=== PATIENT | male | born 1935 | race Caucasian/White ===

== ENCOUNTER 2016-08-04 10:50 | Day surgery (SDC) | payer OTHER ==
[~2016-08-04] VITALS: Ht 180.3 cm; Wt 106.0 kg
[~2016-08-04 10:50] MED LIST: ACARBOSE25 MG PO; ADULT LOW DOSE81 M1 PO; ALBUTEROL0.63 MG/3 IH; ALDACTONE25 MG PO; ALLOPURINOL300 MG PO; ALPHAGAN P100 DROP/2 BOTH EYES; ALPHAGAN P100 DROP/5 BOTH EYES; ALPRAZOLAM0.25 M2 PO; ALTACE5 MG PO; AMLODIPINE BESYL5 MG PO; ANALGESIC BALM28 GM TP; ANALPRAM HC 2.5%4 G1 PR; ANALPRAM HC 2.530 GM PR; ANTIFUNGAL15 G1 TP; APRESOLINE25 MG PO; AQUAPHOR OINTM105 GM TP; ARTHRICREME85 GM TP; ASPERCREME 1035.4 GM TP; ASPERCREME L177.4 ML TP; ATARAX10 MG PO; BACTRIM,SEPT1 TABLET PO; BACTROBAN CREAM15 GM TP; BACTROBAN OINTM22 GM TP; BENADRYL ALLERG25 MG PO; BENADRYL25 MG PO; BESIVANCE5 ML RIGHT EYE; BRIMONIDINE TART5 ML BOTH EYES; BUMETANIDE1 M1 PO; BUMETANIDE2 MG PO; BUMEX2 MG PO; BYETTA PEN250 MCG/M1 SC; BYETTA10 MCG/0.0 SQ; CALCITRIOL0.25 MC1; CALCITRIOL0.5 MCG PO; CARAFATE1 GM PO; CATAPRES0.1 MG PO; CENTANY30 GM TP; CHILD ASPIRIN81 M1 PO; CHLORASEPTIC T1 EACH PO; CLINDAMYCIN HC300 MG PO; CLONIDINE HCL0.1 MG PO; COMBIVENT INH14.7 GM IH; COMBIVENT RESPIM4 GM IH; COUMADIN2 MG PO; Chronulac,Cephulac,E PO; Chronulac,Cephulac,Enulose 20 gm/30 ml PO; DESOXIMETASONE15 G1 TP; DULCOLAX10 MG PR; DUONEB 2.5-0.5 M3 ML AEROSOL; DUONEB 2.5-0.5 M3 ML IH; ENDOCET 5-3251 EACH PO; FLEET MINERAL133 ML PR; FLORASTOR250 MG PO; HEPARIN SO1000 UNIT1 INTRA-CATH; HYDRALAZINE HCL25 MG PO; HYDROCODON-ACE1 EAC7 PO; HYDROPHOR OINT454 GM TP; HYDROPHOR228 GM TP; HYDROXYZINE HCL10 MG PO; HYDROXYZINE HCL25 MG PO; INSTA-GLUCOSE G31 GM PO; K-DUR20 MEQ PO; KENALOG,ARISTOC15 G2 TP; KENALOG,ARISTOC80 GM TP; KLOR-CON 1010 ME1 PO; KLOR-CON M2020 MEQ PO; LANTUS 3 M100 UNITS1 SC; LANTUS100 UNIT/1 SQ; LANTUS100 UNIT/2 SQ; LASIX40 MG PO; LASIX80 MG PO; LEVAQUIN500 MG PO; LEVAQUIN750 MG PO; LEVEMIR FL100 UNITS/ SC; LEVEMIR100 UNIT/2 SC; LEVOFLOXACIN750 MG PO; LO-DOSE ASPIRIN81 M1 PO; LO-DOSE ASPIRIN81 M2 PO; LORAZEPAM1 MG PO; LYRICA75 MG PO; MAG-AL PLUS SUS30 ML PO; METOCLOPRAMIDE10 MG PO; METOLAZONE10 MG PO; METOLAZONE5 MG PO; METOPROLOL SUCC50 MG PO; MIRALAX17 GM PO; MIRALAX255 GM PO; NEPHRO-VITE,1 TABLET PO; NEXIUM40 MG PO; NITROSTAT0.4 MG SL; NORVASC5 MG PO; NOVOLOG 10100 UNITS/ SC; NOVOLOG 10100 UNITS/ SQ; NOVOLOG MI100 UNIT/3 SC; NOVOLOG PE100 UNITS/ SC; NOVOLOG100 UNIT/1 SC; NYSTATIN15 GM TP; OMEPRAZOLE40 M1 PO; ONDANSETRON ODT4 MG PO; OXYCODONE HCL5 MG PO; Ocean Nasal 0.65% BOTH NARES; PAIN RELIEF325 M1 PO; PANTOPRAZOLE SO40 MG PO; PHENERGAN-CODE120 ML PO; PHILLIPS'400 MG/5 M PO; POLYETHYLENE GL17 GM PO; PRECOSE25 MG PO; PRED FORTE100 DROP/5 RIGHT EYE; PRILOSEC20 MG PO; PROLENSA1.6 ML BOTH EYES; PROTONIX40 MG PO; RAMIPRIL5 MG PO; RANITIDINE HCL150 M1 PO; REMEDY NUTRASHI59 ML TP; RENAPLEX-D; RENVELA800 MG PO; ROCALTROL0.5 MCG PO; SARNA ANTI-ITC222 ML TP; SENNA S TABLET1 EACH PO; SENNA-TIME S T1 EACH PO; SENOKOT,SENN1 TABLET PO; SERTRALINE HCL100 MG PO; SILVADENE20 GM TP; SIMVASTATIN40 M1 PO; SIMVASTATIN40 MG PO; SPIRONOLACTONE25 MG PO; SSD25GM TP; SUCRALFATE1 GM PO; TOPICORT60 G1 TP; TOPROL XL50 MG PO; TRAMADOL HCL50 MG PO; TYLENOL REGULA325 MG PO; TYLENOL WITH C1 EACH PO; ULORIC40 MG PO; ULTRAM50 MG PO; VENLAFAXINE225 MG PO; VOLTAREN 1% GE100 GM TP; WARFARIN SODIUM PO; WARFARIN SODIUM1 MG PO; WARFARIN SODIUM2 MG PO; WARFARIN SODIUM5 MG PO; XANAX0.25 MG PO; ZOCOR40 MG PO; ZOFRAN4 MG PO; ZOLOFT100 MG PO; ZOVIRAX OINTMEN15 GM TP; Zocor PO
[2016-08-04 11:58] LABS: POINT-OF-CARE METER ID UU14174212
[2016-08-04 12:11] LABS: HEMATOCRIT 43.5 % (38.0-50.0); MCH 27.4 PG (29.0-34.0); MCHC 32.6 G/DL (30.0-36.0); MCV 83.8 FL (86-99); MEAN PLAT.VOLUME 9.5 uM^3 (9.0-12.4); PLATELET COUNT 203 K/uL (156-360); RBC DIS.WIDTH-CV 19.3 % (11.8-14.6); RBC DIS.WIDTH-SD 59.7 % (39-53); RED BLOOD COUNT 5.19 M/uL (4.00-5.50); WHITE BLOOD COUNT 12.1 K/uL (4.1-10.2)
[2016-08-04 12:12] LABS: INTER. NORMALIZED RATIO 1.1
[2016-08-04 12:48] VITALS: BP 150/78
[2016-08-04 12:49] LABS: ANION GAP 15 MEQ/L (2-14); CHLORIDE 94 MEQ/L (99-109); POTASSIUM 4.8 MEQ/L (3.7-5.4); SAMPLE HEMOLYSIS CHECK 0; SAMPLE ICTERIC CHECK 0; SAMPLE LIPEMIA CHECK 0; SODIUM 136 MEQ/L (136-147)
[2016-08-04 12:55] LABS: GFR ESTIMATE (CALCULATED) 36 mL/min/; GLUCOSE 102 mg/dL (70-99); UREA NITROGEN (BUN) 22 mg/dL (9-23)
[2016-08-04 13:06] LABS: METH RESISTANT S AUREUS PCR POSITIVE (NEGATIVE)
[2016-08-04 13:07] LABS: PROBE CHECK PASS
[2016-08-04 16:13] LABS: POINT-OF-CARE USER ID 515036437
[2016-08-04 16:53] VITALS: BP 134/70
[2016-08-04 18:05] VITALS: BP 132/68
== END 2016-08-04 18:10 ==
LOC: SDC 10:50
PROVIDERS: Surgery
PROC: 03180ZD Bypass Left Brachial Artery to Upper Arm Vein, Open Approach (ICD-10-PCS; principal; 2016-08-04)
DX: N18.6 End stage renal disease (principal); Z99.2 Dependence on renal dialysis; E11.22 Type 2 diabetes mellitus with diabetic chronic kidney disease; D63.1 Anemia in chronic kidney disease; K21.9 Gastro-esophageal reflux disease without esophagitis; G47.33 Obstructive sleep apnea (adult) (pediatric); I50.9 Heart failure, unspecified; I48.91 Unspecified atrial fibrillation; I87.2 Venous insufficiency (chronic) (peripheral); M10.9 Gout, unspecified; Z98.890 Other specified postprocedural states; Z91.040 Latex allergy status; Z79.01 Long term (current) use of anticoagulants; Z84.1 Family history of disorders of kidney and ureter; Z83.3 Family history of diabetes mellitus; Z82.3 Family history of stroke
CPT/HCPCS: 80048; 82948; 85027; 85610; 87641; J0690; J1644; J2720; J3010

== ENCOUNTER → 2016-10-25 | Outpatient (CLI) | payer OTHER | END | disposition home or self-care (01) | LOC: AMB 07:45 | PROC: 0JPT0XZ Removal of Tunneled Vascular Access Device from Trunk Subcutaneous Tissue and Fascia, Open Approach (ICD-10-PCS; principal; 2016-10-25) | DX: N18.6 End stage renal disease (principal); Z99.2 Dependence on renal dialysis ==

== ENCOUNTER 2016-12-11 15:37 | Inpatient (IN) | payer OTHER ==
[~2016-12-11] VITALS: Ht 180.3 cm; Wt 109.3 kg
[~2016-12-11 15:37] MED LIST changes: -RENAPLEX-D; +RENAPLEX-D PO
[2016-12-11 16:20] LABS: POINT-OF-CARE METER ID UU14100415
[2016-12-11 16:23] LABS: HEMATOCRIT 31.6 % (38.0-50.0); MCH 30.4 PG (29.0-34.0); MCHC 33.5 G/DL (30.0-36.0); MCV 90.5 FL (86-99); MEAN PLAT.VOLUME 8.4 uM^3 (9.0-12.4); PLATELET COUNT 286 K/uL (156-360); RBC DIS.WIDTH-CV 14.4 % (11.8-14.6); RBC DIS.WIDTH-SD 47.8 % (39-53); RED BLOOD COUNT 3.49 M/uL (4.00-5.50); WHITE BLOOD COUNT 14.6 K/uL (4.1-10.2)
[2016-12-11 16:31] LABS: CHLORIDE 89 mEq/L (99-109); POTASSIUM 3.3 mEq/L (3.7-5.4); SODIUM 134 mEq/L (136-147)
[2016-12-11 16:32] LABS: GLUCOSE 316 mg/dL (70-99)
[2016-12-11 16:34] LABS: ANION GAP 13 MEQ/L (2-14)
[2016-12-11 16:36] LABS: GFR ESTIMATE (CALCULATED) 24 mL/min/
[2016-12-11 16:37] LABS: UREA NITROGEN (BUN) 13 mg/dL (9-23)
[2016-12-11 21:52] VITALS: BP 127/63
[2016-12-11 22:52] LABS: POINT-OF-CARE METER ID UU13113725
[2016-12-12] MEDS ORDERED: CIPRO250 MG PO (01:06)
[2016-12-12] MEDS ORDERED: LIDOCAINE-PRIL1 EACH TP (01:11)
[2016-12-12] MEDS ORDERED: VELTASSA16.8 GM PO (01:15)
[2016-12-12] MEDS ORDERED: CILOSTAZOL50 MG PO (01:17)
[2016-12-12] MEDS ORDERED: NORMAL SALINE FL5 ML TP (01:21)
[2016-12-12] MEDS ORDERED: RENVELA2.4 GM PO (01:24)
[2016-12-12] MEDS ORDERED: CEPACOL SORE T1 EAC9 MM (01:26)
[2016-12-12] MEDS ORDERED: ATARAX,VISTARIL25 MG PO (01:27)
[2016-12-12] MEDS ORDERED: TYLENOL WITH C1 EACH PO (01:29)
[2016-12-12] MEDS ORDERED: ZOFRAN4 MG PO (01:30)
[2016-12-12 05:53] LABS: BASOPHIL COUNT 0.1 K/uL (0-0.1); EOSINOPHIL (%) 2.2 % (0-5); EOSINOPHIL COUNT 0.2 K/uL (0-0.3); HEMATOCRIT 30.5 % (38.0-50.0); IMMATURE GRANULOCYTE (%) 1.3 % (0.0-0.7); IMMATURE GRANULOCYTE COUNT 0.1 K/uL; INSTRUMENT ABS NEUTROPHIL CT 8.5 K/uL; MCH 31.5 PG (29.0-34.0); MCHC 34.4 G/DL (30.0-36.0); MCV 91.6 FL (86-99); MEAN PLAT.VOLUME 8.9 uM^3 (9.0-12.4); MONOCYTE (%) 8.9 % (3-12); NEUTROPHIL (%) 77.9 % (45-76); NEUTROPHIL COUNT 8.5 K/uL (1.8-6.4); PLATELET COUNT 282 K/uL (156-360); RBC DIS.WIDTH-CV 14.6 % (11.8-14.6); RBC DIS.WIDTH-SD 48.8 % (39-53); RED BLOOD COUNT 3.33 M/uL (4.00-5.50); WHITE BLOOD COUNT 10.9 K/uL (4.1-10.2)
[2016-12-12 06:16] LABS: ALKALINE PHOSPHATASE 153 IU/L (3-129); ANION GAP 10 MEQ/L (2-14); CHLORIDE 91 MEQ/L (99-109); GFR ESTIMATE (CALCULATED) 17 mL/min/; GLUCOSE 252 mg/dL (70-99); POTASSIUM 3.6 MEQ/L (3.7-5.4); SAMPLE HEMOLYSIS CHECK 0; SAMPLE ICTERIC CHECK 0; SAMPLE LIPEMIA CHECK 0; SODIUM 135 MEQ/L (136-147); TOTAL BILIRUBIN 0.4 MG/DL (0.0-1.0)
[2016-12-12 06:36] LABS: UREA NITROGEN (BUN) 21 mg/dL (9-23)
[2016-12-12 07:46] VITALS: BP 126/58
[2016-12-12 19:21] VITALS: BP 117/71
[2016-12-12 21:32] LABS: POINT-OF-CARE USER ID 608261316
[2016-12-12 22:58] VITALS: BP 112/54
[2016-12-13 05:56] LABS: POINT-OF-CARE USER ID 608261316
[2016-12-13 08:11] LABS: BASOPHIL COUNT 0.1 K/uL (0-0.1); EOSINOPHIL (%) 3.3 % (0-5); EOSINOPHIL COUNT 0.5 K/uL (0-0.3); HEMATOCRIT 28.8 % (38.0-50.0); IMMATURE GRANULOCYTE (%) 1.5 % (0.0-0.7); IMMATURE GRANULOCYTE COUNT 0.2 K/uL; INSTRUMENT ABS NEUTROPHIL CT 11.5 K/uL; MCH 31.6 PG (29.0-34.0); MCHC 34.4 G/DL (30.0-36.0); MEAN PLAT.VOLUME 8.8 uM^3 (9.0-12.4); MONOCYTE (%) 8.2 % (3-12); MONOCYTE COUNT 1.2 K/uL (0-0.8); NEUTROPHIL (%) 79.5 % (45-76); NEUTROPHIL COUNT 11.5 K/uL (1.8-6.4); NRBC (%) 0.1 /100 WBC (0-0); PLATELET COUNT 294 K/uL (156-360); RBC DIS.WIDTH-CV 14.7 % (11.8-14.6); RBC DIS.WIDTH-SD 49.6 % (39-53); RED BLOOD COUNT 3.13 M/uL (4.00-5.50); WHITE BLOOD COUNT 14.5 K/uL (4.1-10.2)
[2016-12-13 08:17] VITALS: BP 139/74
[2016-12-13 08:35] LABS: ANION GAP 13 MEQ/L (2-14); CHLORIDE 93 MEQ/L (99-109); GFR ESTIMATE (CALCULATED) 11 mL/min/; GLUCOSE 274 mg/dL (70-99); POTASSIUM 3.6 MEQ/L (3.7-5.4); SAMPLE HEMOLYSIS CHECK 0; SAMPLE ICTERIC CHECK 0; SAMPLE LIPEMIA CHECK 0; SODIUM 135 MEQ/L (136-147)
[2016-12-13 08:43] LABS: UREA NITROGEN (BUN) 38 mg/dL (9-23)
[2016-12-13 12:38] LABS: HBSG INDEX 0.17; HEPATITIS B SURFACE ANTIBODY Nonreactive
[2016-12-13 16:10] VITALS: BP 121/53
[2016-12-13 23:10] VITALS: BP 118/70
[2016-12-14 07:25] VITALS: BP 111/56
[2016-12-14 15:50] VITALS: BP 115/55
[2016-12-14 22:54] VITALS: BP 118/72
[2016-12-15] VITALS: BP 110/60
[2016-12-15 08:19] LABS: BASOPHIL COUNT 0.1 K/uL (0-0.1); EOSINOPHIL (%) 2.8 % (0-5); EOSINOPHIL COUNT 0.4 K/uL (0-0.3); HEMATOCRIT 29.1 % (38.0-50.0); IMMATURE GRANULOCYTE (%) 2.2 % (0.0-0.7); IMMATURE GRANULOCYTE COUNT 0.3 K/uL; INSTRUMENT ABS NEUTROPHIL CT 10.5 K/uL; LYMPHOCYTE COUNT 1.3 K/uL (1.0-2.8); MCH 30.2 PG (29.0-34.0); MCV 91.5 FL (86-99); MEAN PLAT.VOLUME 8.8 uM^3 (9.0-12.4); MONOCYTE (%) 8.4 % (3-12); MONOCYTE COUNT 1.2 K/uL (0-0.8); NEUTROPHIL (%) 76.6 % (45-76); NEUTROPHIL COUNT 10.5 K/uL (1.8-6.4); NRBC (%) 0.1 /100 WBC (0-0); PLATELET COUNT 314 K/uL (156-360); RBC DIS.WIDTH-CV 14.8 % (11.8-14.6); RBC DIS.WIDTH-SD 49.1 % (39-53); RED BLOOD COUNT 3.18 M/uL (4.00-5.50); WHITE BLOOD COUNT 13.7 K/uL (4.1-10.2)
[2016-12-15 08:46] LABS: ANION GAP 12 MEQ/L (2-14); CHLORIDE 92 MEQ/L (99-109); GFR ESTIMATE (CALCULATED) 9 mL/min/; GLUCOSE 313 mg/dL (70-99); SAMPLE HEMOLYSIS CHECK 0; SAMPLE ICTERIC CHECK 0; SAMPLE LIPEMIA CHECK 0; SODIUM 130 MEQ/L (136-147); UREA NITROGEN (BUN) 51 mg/dL (9-23)
[2016-12-15 08:49] LABS: POTASSIUM 4.5 MEQ/L (3.7-5.4)
[2016-12-15 17:58] VITALS: BP 121/58
[2016-12-15 23:35] VITALS: BP 114/58
[2016-12-16 07:17] VITALS: BP 107/52
[2016-12-16 22:55] VITALS: BP 124/57
[2016-12-17 06:10] LABS: POINT-OF-CARE METER ID UU13113725
[2016-12-17 06:33] LABS: HEMATOCRIT 31.6 % (38.0-50.0); MCHC 32.9 G/DL (30.0-36.0); MEAN PLAT.VOLUME 8.6 uM^3 (9.0-12.4); PLATELET COUNT 339 K/uL (156-360); RBC DIS.WIDTH-CV 15.5 % (11.8-14.6); RBC DIS.WIDTH-SD 51.8 % (39-53); RED BLOOD COUNT 3.36 M/uL (4.00-5.50); WHITE BLOOD COUNT 12.9 K/uL (4.1-10.2)
[2016-12-17 07:24] VITALS: BP 122/58
[2016-12-17 16:08] VITALS: BP 109/52
[2016-12-17 23:00] VITALS: BP 123/57
[2016-12-18 07:32] VITALS: BP 107/59
[2016-12-18 08:29] LABS: BASOPHIL COUNT 0.1 K/uL (0-0.1); EOSINOPHIL (%) 2.6 % (0-5); EOSINOPHIL COUNT 0.4 K/uL (0-0.3); HEMATOCRIT 28.8 % (38.0-50.0); IMMATURE GRANULOCYTE COUNT 0.1 K/uL; INSTRUMENT ABS NEUTROPHIL CT 11.5 K/uL; LYMPHOCYTE COUNT 1.2 K/uL (1.0-2.8); MCH 31.2 PG (29.0-34.0); MCHC 33.3 G/DL (30.0-36.0); MCV 93.5 FL (86-99); MEAN PLAT.VOLUME 8.7 uM^3 (9.0-12.4); MONOCYTE (%) 8.1 % (3-12); MONOCYTE COUNT 1.2 K/uL (0-0.8); NEUTROPHIL (%) 79.2 % (45-76); NEUTROPHIL COUNT 11.5 K/uL (1.8-6.4); PLATELET COUNT 303 K/uL (156-360); RBC DIS.WIDTH-CV 15.8 % (11.8-14.6); RBC DIS.WIDTH-SD 50.7 % (39-53); RED BLOOD COUNT 3.08 M/uL (4.00-5.50); WHITE BLOOD COUNT 14.5 K/uL (4.1-10.2)
[2016-12-18 08:50] LABS: ANION GAP 13 MEQ/L (2-14); CHLORIDE 96 MEQ/L (99-109); GFR ESTIMATE (CALCULATED) 8 mL/min/; GLUCOSE 266 mg/dL (70-99); SAMPLE HEMOLYSIS CHECK 0; SAMPLE ICTERIC CHECK 0; SAMPLE LIPEMIA CHECK 0; SODIUM 133 MEQ/L (136-147); UREA NITROGEN (BUN) 58 mg/dL (9-23)
[2016-12-18 08:51] LABS: POTASSIUM 5.6 MEQ/L (3.7-5.4)
[2016-12-18 13:12] VITALS: BP 125/62
[2016-12-18 15:57] VITALS: BP 100/66
[2016-12-18 23:16] VITALS: BP 108/51
[2016-12-19 06:53] VITALS: BP 119/58
[2016-12-19 15:15] VITALS: BP 98/52
[2016-12-19 21:19] LABS: POINT-OF-CARE METER ID UU13113725
[2016-12-19 23:18] VITALS: BP 107/58
[2016-12-20 05:27] LABS: POINT-OF-CARE METER ID UU13113725
[2016-12-20 08:06] LABS: BASOPHIL COUNT 0.1 K/uL (0-0.1); EOSINOPHIL (%) 2.9 % (0-5); EOSINOPHIL COUNT 0.4 K/uL (0-0.3); HEMATOCRIT 30.9 % (38.0-50.0); IMMATURE GRANULOCYTE (%) 1.1 % (0.0-0.7); IMMATURE GRANULOCYTE COUNT 0.2 K/uL; INSTRUMENT ABS NEUTROPHIL CT 9.9 K/uL; LYMPHOCYTE COUNT 1.6 K/uL (1.0-2.8); MCH 30.2 PG (29.0-34.0); MCHC 32.7 G/DL (30.0-36.0); MCV 92.5 FL (86-99); MEAN PLAT.VOLUME 8.6 uM^3 (9.0-12.4); MONOCYTE (%) 9.1 % (3-12); MONOCYTE COUNT 1.2 K/uL (0-0.8); NEUTROPHIL (%) 74.1 % (45-76); NEUTROPHIL COUNT 9.9 K/uL (1.8-6.4); PLATELET COUNT 316 K/uL (156-360); RBC DIS.WIDTH-CV 15.8 % (11.8-14.6); RBC DIS.WIDTH-SD 52.8 % (39-53); RED BLOOD COUNT 3.34 M/uL (4.00-5.50); WHITE BLOOD COUNT 13.3 K/uL (4.1-10.2)
[2016-12-20 08:24] LABS: ANION GAP 13 MEQ/L (2-14); CHLORIDE 95 MEQ/L (99-109); SAMPLE HEMOLYSIS CHECK 0; SAMPLE ICTERIC CHECK 0; SAMPLE LIPEMIA CHECK 0; SODIUM 134 MEQ/L (136-147)
[2016-12-20 08:29] LABS: GFR ESTIMATE (CALCULATED) 8 mL/min/; GLUCOSE 180 mg/dL (70-99); UREA NITROGEN (BUN) 49 mg/dL (9-23)
[2016-12-20] MEDS ORDERED: CIPRO250 MG PO (14:36)
[2016-12-20] MEDS ORDERED: VANCOMYCIN HCL1 GM IV (14:36)
== END 2016-12-20 16:57 | disposition home or self-care (01) | DRG 617 ==
LOC: EME 15:37 → EDOF 20:30 → 5EAST 20:30 → ENRESERV 20:31 → 5EAST 21:35
PROVIDERS: Internal Medicine; Internal Medicine Nephrology; Physician Assistant Medical; Surgery
DX: E11.69 Type 2 diabetes mellitus with other specified complication (principal); M86.171 Other acute osteomyelitis, right ankle and foot; E11.52 Type 2 diabetes mellitus with diabetic peripheral angiopathy with gangrene; I70.261 Atherosclerosis of native arteries of extremities with gangrene, right leg; E11.621 Type 2 diabetes mellitus with foot ulcer; L97.514 Non-pressure chronic ulcer of other part of right foot with necrosis of bone; B95.62 Methicillin resistant Staphylococcus aureus infection as the cause of diseases classified elsewhere; B96.5 Pseudomonas (aeruginosa) (mallei) (pseudomallei) as the cause of diseases classified elsewhere; E11.22 Type 2 diabetes mellitus with diabetic chronic kidney disease; I13.2 Hypertensive heart and chronic kidney disease with heart failure and with stage 5 chronic kidney disease, or end stage renal disease; N18.6 End stage renal disease; Z99.2 Dependence on renal dialysis; E87.1 Hypo-osmolality and hyponatremia; I50.9 Heart failure, unspecified; D63.1 Anemia in chronic kidney disease; I87.2 Venous insufficiency (chronic) (peripheral); H53.8 Other visual disturbances; H57.8 Other specified disorders of eye and adnexa; Z98.890 Other specified postprocedural states; E78.5 Hyperlipidemia, unspecified; J44.9 Chronic obstructive pulmonary disease, unspecified; I48.0 Paroxysmal atrial fibrillation; I48.2 Chronic atrial fibrillation; I25.10 Atherosclerotic heart disease of native coronary artery without angina pectoris; I25.2 Old myocardial infarction; E11.42 Type 2 diabetes mellitus with diabetic polyneuropathy; N40.0 Benign prostatic hyperplasia without lower urinary tract symptoms; N30.20 Other chronic cystitis without hematuria; M10.9 Gout, unspecified; F32.9 Major depressive disorder, single episode, unspecified; G47.33 Obstructive sleep apnea (adult) (pediatric); K21.9 Gastro-esophageal reflux disease without esophagitis; E66.9 Obesity, unspecified; Z68.33 Body mass index [BMI] 33.0-33.9, adult; F41.9 Anxiety disorder, unspecified; G89.29 Other chronic pain; M51.9 Unspecified thoracic, thoracolumbar and lumbosacral intervertebral disc disorder; F10.10 Alcohol abuse, uncomplicated; Z95.5 Presence of coronary angioplasty implant and graft; Z98.1 Arthrodesis status; Z79.4 Long term (current) use of insulin; Z87.01 Personal history of pneumonia (recurrent); Z87.891 Personal history of nicotine dependence; Z82.49 Family history of ischemic heart disease and other diseases of the circulatory system; Z83.3 Family history of diabetes mellitus
CPT/HCPCS: 73630; 73718; 80048; 80053; 80069; 80202; 82948; 83605; 85025; 85027; 86706; 87040; 87340; 88305; 88311; 93926; 94640; 94640 76; 94760; 99202; 99281; 99284; J0690; J0692; J0696; J0881; J1644; J1815; J3010; J3370; J7040; J7050; Q0177; S0020

== ENCOUNTER 2017-02-08 20:25 | Inpatient (IN) | payer OTHER ==
[~2017-02-08] VITALS: Ht 180.3 cm; Wt 116.5 kg
[~2017-02-08 20:25] MED LIST changes: -ALBUTEROL0.63 MG/3 IH; +ALBUTEROL2.5 MG/3 M IH; +ATARAX,VISTARIL25 MG PO; +CEPACOL SORE T1 EAC9 MM; +CILOSTAZOL50 MG PO; +CIPRO250 MG PO; +LIDOCAINE-PRIL1 EACH TP; +NORMAL SALINE FL5 ML TP; +RENVELA2.4 GM PO; +VANCOMYCIN HCL1 GM IV; +VELTASSA16.8 GM PO
[2017-02-08 21:25] LABS: BASOPHIL COUNT 0.1 K/uL (0-0.1); EOSINOPHIL (%) 0.1 % (0-5); HEMATOCRIT 29.4 % (38.0-50.0); IMMATURE GRANULOCYTE (%) 0.7 % (0.0-0.7); IMMATURE GRANULOCYTE COUNT 0.1 K/uL; INSTRUMENT ABS NEUTROPHIL CT 16.9 K/uL; LYMPHOCYTE COUNT 0.6 K/uL (1.0-2.8); MCH 29.9 PG (29.0-34.0); MCV 93.6 FL (86-99); MONOCYTE (%) 8.6 % (3-12); MONOCYTE COUNT 1.7 K/uL (0-0.8); NEUTROPHIL (%) 87.4 % (45-76); NEUTROPHIL COUNT 16.9 K/uL (1.8-6.4); PLATELET COUNT 272 K/uL (156-360); RBC DIS.WIDTH-CV 16.3 % (11.8-14.6); RBC DIS.WIDTH-SD 54.9 % (39-53); RED BLOOD COUNT 3.14 M/uL (4.00-5.50); WHITE BLOOD COUNT 19.3 K/uL (4.1-10.2)
[2017-02-08 21:45] LABS: TROP-I INTERPRETATION NEGATIVE; TROPONIN-I 0.02 ng/mL (0.0-0.30)
[2017-02-08 21:57] LABS: INTER. NORMALIZED RATIO 1.3
[2017-02-08 21:59] LABS: CHLORIDE 90 mEq/L (99-109); POTASSIUM 4.7 mEq/L (3.7-5.4); PTT 31.4 SEC (25-37); SODIUM 136 mEq/L (136-147)
[2017-02-08 22:01] LABS: GLUCOSE 156 mg/dL (70-99)
[2017-02-08 22:02] LABS: ANION GAP 19 MEQ/L (2-14)
[2017-02-08 22:04] LABS: ALKALINE PHOSPHATASE 439 IU/L (3-129)
[2017-02-08 22:05] LABS: GFR ESTIMATE (CALCULATED) 15 mL/min/
[2017-02-08 22:06] LABS: UREA NITROGEN (BUN) 47 mg/dL (9-23)
[2017-02-08 22:08] LABS: LIPASE 7 U/L (1.0-51.0)
[2017-02-09 02:15] VITALS: BP 110/57
[2017-02-09 02:52] VITALS: BP 110/57
[2017-02-09 04:25] LABS: POINT-OF-CARE METER ID UU14117124
[2017-02-09 04:29] VITALS: BP 119/54
[2017-02-09 06:41] LABS: POINT-OF-CARE METER ID UU14117124
[2017-02-09 06:43] LABS: HEMATOCRIT 29.6 % (38.0-50.0); MCHC 30.4 G/DL (30.0-36.0); MCV 95.5 FL (86-99); PLATELET COUNT 252 K/uL (156-360); RBC DIS.WIDTH-CV 16.3 % (11.8-14.6); RBC DIS.WIDTH-SD 56.1 % (39-53); WHITE BLOOD COUNT 24.1 K/uL (4.1-10.2)
[2017-02-09 07:05] LABS: ALKALINE PHOSPHATASE 399 IU/L (3-129); ANION GAP 18 MEQ/L (2-14); CHLORIDE 91 MEQ/L (99-109); GFR ESTIMATE (CALCULATED) 13 mL/min/; GLUCOSE 128 mg/dL (70-99); POTASSIUM 5.4 MEQ/L (3.7-5.4); SAMPLE HEMOLYSIS CHECK 0; SAMPLE ICTERIC CHECK 0; SAMPLE LIPEMIA CHECK 0; SODIUM 136 MEQ/L (136-147); UREA NITROGEN (BUN) 54 mg/dL (9-23)
[2017-02-09] MEDS ORDERED: LINZESS72 MCG PO (09:00)
[2017-02-09] MEDS ORDERED: CLONIDINE HCL0.1 MG PO (09:13)
[2017-02-09] MEDS ORDERED: OXYCODONE HCL5 M1 PO (09:15)
[2017-02-09] MEDS ORDERED: PHENERGAN-CODE120 ML PO (09:16)
[2017-02-09 11:52] LABS: AHBS INDEX 0.35; HBSG INDEX 0.16; HEPATITIS B SURFACE ANTIBODY Nonreactive
[2017-02-09 15:30] VITALS: BP 93/50
[2017-02-09 19:12] VITALS: BP 104/59
[2017-02-09 21:52] LABS: POINT-OF-CARE METER ID UU14188577
[2017-02-09 23:26] VITALS: BP 100/50
[2017-02-10] VITALS (7 sets, daily range): BP systolic 100–138; BP diastolic 53–62
[2017-02-10 06:17] LABS: POINT-OF-CARE METER ID UU14208753
[2017-02-10 06:56] LABS: EOSINOPHIL (%) 0.4 % (0-5); EOSINOPHIL COUNT 0.1 K/uL (0-0.3); HEMATOCRIT 28.6 % (38.0-50.0); IMMATURE GRANULOCYTE (%) 0.6 % (0.0-0.7); IMMATURE GRANULOCYTE COUNT 0.1 K/uL; INSTRUMENT ABS NEUTROPHIL CT 13.4 K/uL; LYMPHOCYTE COUNT 0.9 K/uL (1.0-2.8); MCH 29.3 PG (29.0-34.0); MCHC 30.8 G/DL (30.0-36.0); MCV 95.3 FL (86-99); MEAN PLAT.VOLUME 9.1 uM^3 (9.0-12.4); MONOCYTE COUNT 1.3 K/uL (0-0.8); NEUTROPHIL (%) 85.3 % (45-76); NEUTROPHIL COUNT 13.4 K/uL (1.8-6.4); NRBC (%) 0.1 /100 WBC (0-0); PLATELET COUNT 266 K/uL (156-360); RBC DIS.WIDTH-CV 15.9 % (11.8-14.6); RBC DIS.WIDTH-SD 54.4 % (39-53); WHITE BLOOD COUNT 15.7 K/uL (4.1-10.2)
[2017-02-10 07:02] LABS: ALKALINE PHOSPHATASE 322 IU/L (3-129); ANION GAP 14 MEQ/L (2-14); CHLORIDE 93 MEQ/L (99-109); SAMPLE HEMOLYSIS CHECK 0; SAMPLE ICTERIC CHECK 0; SAMPLE LIPEMIA CHECK 0; SODIUM 139 MEQ/L (136-147); UREA NITROGEN (BUN) 47 mg/dL (9-23)
[2017-02-10 07:05] LABS: GFR ESTIMATE (CALCULATED) 16 mL/min/; GLUCOSE 81 mg/dL (70-99); TOTAL BILIRUBIN 0.6 MG/DL (0.0-1.0)
[2017-02-10 07:19] LABS: BASOPHIL COUNT 0.1 K/uL (0-0.1); EOSINOPHIL (%) 0.4 % (0-5); EOSINOPHIL COUNT 0.1 K/uL (0-0.3); HEMATOCRIT 28.1 % (38.0-50.0); IMMATURE GRANULOCYTE (%) 0.5 % (0.0-0.7); IMMATURE GRANULOCYTE COUNT 0.1 K/uL; INSTRUMENT ABS NEUTROPHIL CT 13.6 K/uL; LYMPHOCYTE COUNT 0.9 K/uL (1.0-2.8); MCH 29.8 PG (29.0-34.0); MCHC 31.3 G/DL (30.0-36.0); MCV 95.3 FL (86-99); MEAN PLAT.VOLUME 8.8 uM^3 (9.0-12.4); MONOCYTE COUNT 1.3 K/uL (0-0.8); NEUTROPHIL (%) 85.4 % (45-76); NEUTROPHIL COUNT 13.6 K/uL (1.8-6.4); PLATELET COUNT 265 K/uL (156-360); RBC DIS.WIDTH-CV 15.9 % (11.8-14.6); RBC DIS.WIDTH-SD 54.6 % (39-53); RED BLOOD COUNT 2.95 M/uL (4.00-5.50); WHITE BLOOD COUNT 15.9 K/uL (4.1-10.2)
[2017-02-10 11:25] LABS: POINT-OF-CARE METER ID UU14117124
[2017-02-10 16:05] LABS: POINT-OF-CARE METER ID UU14117124
[2017-02-11 04:44] VITALS: BP 100/53
[2017-02-11 06:57] LABS: HEMATOCRIT 26.8 % (38.0-50.0); MCH 30.4 PG (29.0-34.0); MCHC 32.5 G/DL (30.0-36.0); MCV 93.7 FL (86-99); PLATELET COUNT 247 K/uL (156-360); RBC DIS.WIDTH-CV 15.7 % (11.8-14.6); RBC DIS.WIDTH-SD 53.1 % (39-53); RED BLOOD COUNT 2.86 M/uL (4.00-5.50); WHITE BLOOD COUNT 12.7 K/uL (4.1-10.2)
[2017-02-11 07:30] LABS: ANION GAP 18 MEQ/L (2-14); CHLORIDE 90 MEQ/L (99-109); GFR ESTIMATE (CALCULATED) 12 mL/min/; POTASSIUM 4.8 MEQ/L (3.7-5.4); SAMPLE HEMOLYSIS CHECK 0; SAMPLE ICTERIC CHECK 0; SAMPLE LIPEMIA CHECK 0; SODIUM 135 MEQ/L (136-147)
[2017-02-11 07:31] LABS: GLUCOSE 136 mg/dL (70-99); UREA NITROGEN (BUN) 71 mg/dL (9-23)
[2017-02-11 07:52] LABS: EOSINOPHIL (%) 0 % (0-5); HEMATOLOGY COMMENT 1 SMEAR COMPATIBLE; IMMATURE GRANULOCYTE (%) 0.5 % (0.0-0.7); IMMATURE GRANULOCYTE COUNT 0.1 K/uL; INSTRUMENT ABS NEUTROPHIL CT 12.4 K/uL; LYMPHOCYTE COUNT 0.1 K/uL (1.0-2.8); MONOCYTE (%) 1.3 % (3-12); MONOCYTE COUNT 0.2 K/uL (0-0.8); NEUTROPHIL (%) 97.1 % (45-76); NEUTROPHIL COUNT 12.4 K/uL (1.8-6.4)
[2017-02-11 07:55] VITALS: BP 114/54
[2017-02-11 11:08] LABS: POINT-OF-CARE METER ID UU14188577
[2017-02-11 11:24] VITALS: BP 108/54
[2017-02-11 15:27] VITALS: BP 105/57
[2017-02-11 16:27] LABS: POINT-OF-CARE METER ID UU14188577
[2017-02-11 19:15] VITALS: BP 90/53
[2017-02-11 21:35] LABS: POINT-OF-CARE METER ID UU14208753
[2017-02-11 21:51] LABS: METH RESISTANT S AUREUS PCR POSITIVE (NEGATIVE)
[2017-02-11 22:28] LABS: PROBE CHECK PASS
[2017-02-11 23:33] VITALS: BP 111/57
[2017-02-12 02:01] LABS: POINT-OF-CARE METER ID UU14208753
[2017-02-12 03:53] VITALS: BP 110/62
[2017-02-12 06:21] LABS: POINT-OF-CARE METER ID UU14208753
[2017-02-12 06:56] LABS: EOSINOPHIL (%) 0 % (0-5); HEMATOCRIT 27.1 % (38.0-50.0); IMMATURE GRANULOCYTE (%) 0.6 % (0.0-0.7); IMMATURE GRANULOCYTE COUNT 0.1 K/uL; INSTRUMENT ABS NEUTROPHIL CT 10.6 K/uL; LYMPHOCYTE COUNT 0.1 K/uL (1.0-2.8); MCH 29.5 PG (29.0-34.0); MCHC 32.1 G/DL (30.0-36.0); MCV 91.9 FL (86-99); MEAN PLAT.VOLUME 9.1 uM^3 (9.0-12.4); MONOCYTE (%) 3.2 % (3-12); MONOCYTE COUNT 0.4 K/uL (0-0.8); NEUTROPHIL (%) 94.9 % (45-76); NEUTROPHIL COUNT 10.6 K/uL (1.8-6.4); NRBC (%) 0.5 /100 WBC (0-0); PLATELET COUNT 241 K/uL (156-360); RBC DIS.WIDTH-CV 15.4 % (11.8-14.6); RED BLOOD COUNT 2.95 M/uL (4.00-5.50); WHITE BLOOD COUNT 11.2 K/uL (4.1-10.2)
[2017-02-12 07:37] LABS: ANION GAP 19 MEQ/L (2-14); CHLORIDE 88 MEQ/L (99-109); GFR ESTIMATE (CALCULATED) 10 mL/min/; GLUCOSE 256 mg/dL (70-99); POTASSIUM 5.2 MEQ/L (3.7-5.4); SAMPLE HEMOLYSIS CHECK 0; SAMPLE ICTERIC CHECK 0; SAMPLE LIPEMIA CHECK 0; SODIUM 133 MEQ/L (136-147); UREA NITROGEN (BUN) 101 mg/dL (9-23)
[2017-02-12 15:53] VITALS: BP 96/48
[2017-02-12 16:20] LABS: POINT-OF-CARE METER ID UU14208753
[2017-02-12 18:35] LABS: INTERNAL CONTROL VALID? YES
[2017-02-12 21:42] LABS: POINT-OF-CARE METER ID UU14208753
[2017-02-12 23:57] VITALS: BP 106/53
[2017-02-13 04:31] VITALS: BP 118/70
[2017-02-13 05:54] LABS: POINT-OF-CARE METER ID UU14117124
[2017-02-13 08:41] LABS: EOSINOPHIL (%) 0 % (0-5); HEMATOCRIT 24.8 % (38.0-50.0); IMMATURE GRANULOCYTE (%) 1.3 % (0.0-0.7); IMMATURE GRANULOCYTE COUNT 0.1 K/uL; INSTRUMENT ABS NEUTROPHIL CT 8.8 K/uL; LYMPHOCYTE COUNT 0.2 K/uL (1.0-2.8); MCH 30.3 PG (29.0-34.0); MCHC 32.7 G/DL (30.0-36.0); MCV 92.9 FL (86-99); MEAN PLAT.VOLUME 8.9 uM^3 (9.0-12.4); MONOCYTE (%) 3.7 % (3-12); MONOCYTE COUNT 0.4 K/uL (0-0.8); NEUTROPHIL (%) 93.4 % (45-76); NEUTROPHIL COUNT 8.8 K/uL (1.8-6.4); NRBC (%) 0.7 /100 WBC (0-0); PLATELET COUNT 240 K/uL (156-360); RBC DIS.WIDTH-CV 15.4 % (11.8-14.6); RED BLOOD COUNT 2.67 M/uL (4.00-5.50); WHITE BLOOD COUNT 9.4 K/uL (4.1-10.2)
[2017-02-13 08:58] LABS: ANION GAP 13 MEQ/L (2-14); CHLORIDE 88 MEQ/L (99-109); POTASSIUM 4.4 MEQ/L (3.7-5.4); SAMPLE HEMOLYSIS CHECK 0; SAMPLE ICTERIC CHECK 0; SAMPLE LIPEMIA CHECK 0; SODIUM 132 MEQ/L (136-147)
[2017-02-13 09:07] LABS: GFR ESTIMATE (CALCULATED) 15 mL/min/; UREA NITROGEN (BUN) 59 mg/dL (9-23)
[2017-02-13 09:15] LABS: GLUCOSE 415 mg/dL (70-99)
[2017-02-13 11:42] VITALS: BP 98/54
[2017-02-13 16:00] VITALS: BP 117/58
[2017-02-13 16:35] LABS: POINT-OF-CARE METER ID UU14117124
[2017-02-13 19:19] VITALS: BP 109/53
[2017-02-13 21:49] LABS: POINT-OF-CARE METER ID UU14208753
[2017-02-13 23:44] VITALS: BP 121/58
[2017-02-14 03:49] VITALS: BP 118/55
[2017-02-14 06:15] LABS: POINT-OF-CARE METER ID UU14117124
[2017-02-14 08:52] LABS: EOSINOPHIL (%) 0 % (0-5); HEMATOCRIT 28.1 % (38.0-50.0); IMMATURE GRANULOCYTE (%) 0.9 % (0.0-0.7); IMMATURE GRANULOCYTE COUNT 0.1 K/uL; INSTRUMENT ABS NEUTROPHIL CT 11.8 K/uL; LYMPHOCYTE COUNT 0.3 K/uL (1.0-2.8); MCH 28.7 PG (29.0-34.0); MCHC 31.3 G/DL (30.0-36.0); MCV 91.5 FL (86-99); MEAN PLAT.VOLUME 9.1 uM^3 (9.0-12.4); MONOCYTE (%) 4.6 % (3-12); MONOCYTE COUNT 0.6 K/uL (0-0.8); NEUTROPHIL (%) 92.2 % (45-76); NEUTROPHIL COUNT 11.8 K/uL (1.8-6.4); NRBC (%) 0.5 /100 WBC (0-0); PLATELET COUNT 275 K/uL (156-360); RBC DIS.WIDTH-CV 15.2 % (11.8-14.6); RBC DIS.WIDTH-SD 50.4 % (39-53); RED BLOOD COUNT 3.07 M/uL (4.00-5.50); WHITE BLOOD COUNT 12.8 K/uL (4.1-10.2)
[2017-02-14 09:07] LABS: ANION GAP 17 MEQ/L (2-14); CHLORIDE 90 MEQ/L (99-109); POTASSIUM 4.8 MEQ/L (3.7-5.4); SAMPLE HEMOLYSIS CHECK 0; SAMPLE ICTERIC CHECK 0; SAMPLE LIPEMIA CHECK 0; SODIUM 136 MEQ/L (136-147)
[2017-02-14 09:13] LABS: GFR ESTIMATE (CALCULATED) 11 mL/min/; GLUCOSE 331 mg/dL (70-99); UREA NITROGEN (BUN) 85 mg/dL (9-23)
[2017-02-14 13:52] VITALS: BP 100/52
[2017-02-14 16:55] VITALS: BP 105/52
[2017-02-14 19:21] VITALS: BP 107/58
[2017-02-14 22:57] VITALS: BP 121/58
[2017-02-15 04:15] VITALS: BP 122/59
[2017-02-15 06:46] LABS: POINT-OF-CARE METER ID UU14117124
[2017-02-15 08:32] VITALS: BP 114/55
[2017-02-15 08:41] LABS: POINT-OF-CARE METER ID UU14208753
[2017-02-15 12:20] VITALS: BP 118/59
[2017-02-15 16:58] VITALS: BP 108/58
[2017-02-15 19:39] VITALS: BP 107/53
[2017-02-15 21:44] LABS: POINT-OF-CARE METER ID UU14208753
[2017-02-15 23:40] VITALS: BP 99/54
[2017-02-16 04:00] VITALS: BP 125/59
[2017-02-16 06:21] LABS: POINT-OF-CARE METER ID UU14208753
[2017-02-16 07:35] VITALS: BP 122/65
[2017-02-16 08:40] LABS: EOSINOPHIL (%) 0 % (0-5); HEMATOCRIT 29.6 % (38.0-50.0); IMMATURE GRANULOCYTE COUNT 0.1 K/uL; INSTRUMENT ABS NEUTROPHIL CT 12.5 K/uL; LYMPHOCYTE COUNT 0.3 K/uL (1.0-2.8); MCH 30.1 PG (29.0-34.0); MCHC 32.1 G/DL (30.0-36.0); MCV 93.7 FL (86-99); MONOCYTE (%) 4.3 % (3-12); MONOCYTE COUNT 0.6 K/uL (0-0.8); NEUTROPHIL (%) 92.3 % (45-76); NEUTROPHIL COUNT 12.5 K/uL (1.8-6.4); NRBC (%) 0.8 /100 WBC (0-0); PLATELET COUNT 301 K/uL (156-360); RBC DIS.WIDTH-CV 16.4 % (11.8-14.6); RBC DIS.WIDTH-SD 53.3 % (39-53); RED BLOOD COUNT 3.16 M/uL (4.00-5.50); WHITE BLOOD COUNT 13.5 K/uL (4.1-10.2)
[2017-02-16 09:20] LABS: ANION GAP 16 MEQ/L (2-14); CHLORIDE 87 MEQ/L (99-109); GFR ESTIMATE (CALCULATED) 12 mL/min/; GLUCOSE 356 mg/dL (70-99); POTASSIUM 4.3 MEQ/L (3.7-5.4); SAMPLE HEMOLYSIS CHECK 0; SAMPLE ICTERIC CHECK 0; SAMPLE LIPEMIA CHECK 0; SODIUM 133 MEQ/L (136-147); UREA NITROGEN (BUN) 78 mg/dL (9-23)
[2017-02-16] MEDS ORDERED: ENDOCET 5-3251 EACH PO (09:22)
[2017-02-16] MEDS ORDERED: HEPARIN SO5000 UNIT4 SC (09:22)
[2017-02-16] MEDS ORDERED: GLUCAGEN1 MG/1 ML IM/SC (09:22)
[2017-02-16] MEDS ORDERED: SPIRIVA RESPIMAT4 GM IH (09:22)
[2017-02-16] MEDS ORDERED: DUONEB 2.5-0.5 M3 ML AEROSOL ×2 (09:22)
[2017-02-16] MEDS ORDERED: CLONIDINE HCL0.1 MG PO (09:22)
== END 2017-02-16 14:59 | disposition designated cancer center or children's hospital (05) | DRG 190 ==
LOC: EME 20:25 → 3EAST 02-09 01:09 → EDOF 02-09 01:09 → ENRESERV 02-09 01:13 → 3EAST 02-09 02:13
PROVIDERS: Emergency Medicine; Internal Medicine; Internal Medicine Nephrology
PROC: 5A1D70Z Performance of Urinary Filtration, Intermittent, Less than 6 Hours Per Day (ICD-10-PCS; principal; 2017-02-09)
PROC: 5A09357 Assistance with Respiratory Ventilation, Less than 24 Consecutive Hours, Continuous Positive Airway Pressure (ICD-10-PCS; 2017-02-11)
DX: J44.0 Chronic obstructive pulmonary disease with (acute) lower respiratory infection (principal); J15.1 Pneumonia due to Pseudomonas; Y95 Nosocomial condition; J96.01 Acute respiratory failure with hypoxia; J44.1 Chronic obstructive pulmonary disease with (acute) exacerbation; I13.2 Hypertensive heart and chronic kidney disease with heart failure and with stage 5 chronic kidney disease, or end stage renal disease; E11.21 Type 2 diabetes mellitus with diabetic nephropathy; E11.22 Type 2 diabetes mellitus with diabetic chronic kidney disease; N18.6 End stage renal disease; D63.1 Anemia in chronic kidney disease; E11.51 Type 2 diabetes mellitus with diabetic peripheral angiopathy without gangrene; I87.2 Venous insufficiency (chronic) (peripheral); I50.9 Heart failure, unspecified; T81.89XA Other complications of procedures, not elsewhere classified, initial encounter; Y83.5 Amputation of limb(s) as the cause of abnormal reaction of the patient, or of later complication, without mention of misadventure at the time of the procedure; E11.649 Type 2 diabetes mellitus with hypoglycemia without coma; E11.42 Type 2 diabetes mellitus with diabetic polyneuropathy; E78.5 Hyperlipidemia, unspecified; G47.33 Obstructive sleep apnea (adult) (pediatric); I25.10 Atherosclerotic heart disease of native coronary artery without angina pectoris; I48.2 Chronic atrial fibrillation; K21.9 Gastro-esophageal reflux disease without esophagitis; K29.00 Acute gastritis without bleeding; K59.00 Constipation, unspecified; M10.9 Gout, unspecified; N40.0 Benign prostatic hyperplasia without lower urinary tract symptoms; F41.9 Anxiety disorder, unspecified; M51.9 Unspecified thoracic, thoracolumbar and lumbosacral intervertebral disc disorder; E66.9 Obesity, unspecified; Z22.322 Carrier or suspected carrier of Methicillin resistant Staphylococcus aureus; Z68.35 Body mass index [BMI] 35.0-35.9, adult; I25.2 Old myocardial infarction; Z87.891 Personal history of nicotine dependence; Z79.4 Long term (current) use of insulin; Z91.19 Patient's noncompliance with other medical treatment and regimen; Z95.5 Presence of coronary angioplasty implant and graft; Z99.2 Dependence on renal dialysis; Z22.39 Carrier of other specified bacterial diseases; Z66 Do not resuscitate; Z91.040 Latex allergy status; Z79.82 Long term (current) use of aspirin; Z89.431 Acquired absence of right foot
CPT/HCPCS: 71010; 71020; 74000; 74177; 76705; 80048; 80053; 80069; 81003; 82272; 82948; 83605; 83690; 84484; 85025; 85025 91; 85027; 85610; 85730; 86706; 87040; 87340; 87641; 93005; 94640; 94640 76; 94660; 94667; 94668; 94760; 94799; 99202; 99281; 99285; C9113; J0456; J0692; J0696; J0881; J1170; J1644; J1815; J1940; J2270; J2405; J2765; J2920; J2930; J3370; J7030; J7040; J7050; J7512

== ENCOUNTER 2017-02-18 11:10 | Inpatient (IN) | payer OTHER ==
[~2017-02-18] VITALS: Ht 180.3 cm; Wt 109.6 kg
[~2017-02-18 11:10] MED LIST changes: +GLUCAGEN1 MG/1 ML IM/SC; +HEPARIN SO5000 UNIT4 SC; +LINZESS72 MCG PO; +OXYCODONE HCL5 M1 PO; +SPIRIVA RESPIMAT4 GM IH
[2017-02-18 12:04] LABS: HEMATOCRIT 31.8 % (38.0-50.0); MCH 29.4 PG (29.0-34.0); MCHC 32.1 G/DL (30.0-36.0); MCV 91.6 FL (86-99); MEAN PLAT.VOLUME 8.8 uM^3 (9.0-12.4); NRBC (%) 0.1 /100 WBC (0-0); PLATELET COUNT 262 K/uL (156-360); RBC DIS.WIDTH-CV 17.1 % (11.8-14.6); RBC DIS.WIDTH-SD 54.8 % (39-53); RED BLOOD COUNT 3.47 M/uL (4.00-5.50); WHITE BLOOD COUNT 14.1 K/uL (4.1-10.2)
[2017-02-18 12:15] LABS: CHLORIDE 86 mEq/L (99-109); SODIUM 132 mEq/L (136-147)
[2017-02-18 12:17] LABS: GLUCOSE 241 mg/dL (70-99)
[2017-02-18 12:19] LABS: ANION GAP 16 MEQ/L (2-14)
[2017-02-18 12:21] LABS: GFR ESTIMATE (CALCULATED) 12 mL/min/
[2017-02-18 12:22] LABS: UREA NITROGEN (BUN) 65 mg/dL (9-23)
[2017-02-18 12:24] LABS: POTASSIUM 5.9 mEq/L (3.7-5.4)
[2017-02-18 12:28] LABS: TROP-I INTERPRETATION NEGATIVE; TROPONIN-I 0.07 ng/mL (0.0-0.30)
[2017-02-18 14:27] LABS: TROP-I INTERPRETATION NEGATIVE; TROPONIN-I 0.06 ng/mL (0.0-0.30)
[2017-02-18] MEDS ORDERED: FORTAZ IV (15:01)
[2017-02-18] MEDS ORDERED: CALMOSEPTINE O3.5 GM TP (15:07)
[2017-02-18] MEDS ORDERED: AQUAPHOR OINTM105 GM TP (15:08)
[2017-02-18] MEDS ORDERED: BETADINE1 EACH TP (15:10)
[2017-02-18] MEDS ORDERED: REGLAN5 MG PO (15:13)
[2017-02-18 20:47] VITALS: BP 112/57
[2017-02-18 21:51] LABS: POINT-OF-CARE METER ID UU14208750
[2017-02-18 23:45] VITALS: BP 108/54
[2017-02-19 04:30] VITALS: BP 123/59
[2017-02-19 06:16] LABS: METH RESISTANT S AUREUS PCR POSITIVE (NEGATIVE)
[2017-02-19 06:20] LABS: PROBE CHECK PASS
[2017-02-19 06:49] LABS: POINT-OF-CARE METER ID UU14208750
[2017-02-19 07:25] LABS: EOSINOPHIL (%) 1.1 % (0-5); EOSINOPHIL COUNT 0.2 K/uL (0-0.3); HEMATOCRIT 32.9 % (38.0-50.0); IMMATURE GRANULOCYTE (%) 1.3 % (0.0-0.7); IMMATURE GRANULOCYTE COUNT 0.2 K/uL; INSTRUMENT ABS NEUTROPHIL CT 12.5 K/uL; MCH 28.8 PG (29.0-34.0); MCHC 31.3 G/DL (30.0-36.0); MCV 91.9 FL (86-99); MONOCYTE (%) 7.6 % (3-12); MONOCYTE COUNT 1.1 K/uL (0-0.8); NEUTROPHIL (%) 83.5 % (45-76); NEUTROPHIL COUNT 12.5 K/uL (1.8-6.4); PLATELET COUNT 258 K/uL (156-360); RBC DIS.WIDTH-CV 16.8 % (11.8-14.6); RBC DIS.WIDTH-SD 54.7 % (39-53); RED BLOOD COUNT 3.58 M/uL (4.00-5.50)
[2017-02-19 07:59] LABS: ALKALINE PHOSPHATASE 192 IU/L (3-129); ANION GAP 18 MEQ/L (2-14); CHLORIDE 86 MEQ/L (99-109); GFR ESTIMATE (CALCULATED) 10 mL/min/; GLUCOSE 252 mg/dL (70-99); SAMPLE HEMOLYSIS CHECK 0; SAMPLE ICTERIC CHECK 0; SAMPLE LIPEMIA CHECK 0; SODIUM 131 MEQ/L (136-147); TOTAL BILIRUBIN 0.7 MG/DL (0.0-1.0); UREA NITROGEN (BUN) 78 mg/dL (9-23)
[2017-02-19 08:00] LABS: POTASSIUM 6.4 MEQ/L (3.7-5.4)
[2017-02-19 08:27] VITALS: BP 118/50
[2017-02-19 08:31] LABS: ADD MIUA? YES; BILIRUBIN NEGATIVE; BLOOD MODERATE; COLOR AMBER ((YELLOW)); GLUCOSE (STRIP) NEGATIVE; KETONES NEGATIVE; LEUKOCYTES LARGE; NITRITE NEGATIVE; PROTEIN (STRIP) 100; SPECIFIC GRAVITY 1.016 (1.000-1.030); UROBILINOGEN 0.2 MG/DL (0.2-1.0)
[2017-02-19 09:32] LABS: WHITE BLOOD CELLS TNTC /HPF (0-5)
[2017-02-19 10:35] LABS: POINT-OF-CARE METER ID UU14208750
[2017-02-19 11:30] VITALS: BP 116/50
[2017-02-19 12:08] LABS: POINT-OF-CARE METER ID UU14208750
[2017-02-19 17:39] LABS: POINT-OF-CARE METER ID UU14208750
[2017-02-19 17:43] VITALS: BP 110/58
[2017-02-19 19:06] VITALS: BP 104/51
[2017-02-19 22:14] LABS: POINT-OF-CARE METER ID UU14208750
[2017-02-20] VITALS (7 sets, daily range): BP systolic 109–125; BP diastolic 56–65
[2017-02-20 07:07] LABS: EOSINOPHIL (%) 0 % (0-5); IMMATURE GRANULOCYTE (%) 0.7 % (0.0-0.7); IMMATURE GRANULOCYTE COUNT 0.1 K/uL; INSTRUMENT ABS NEUTROPHIL CT 13.2 K/uL; LYMPHOCYTE COUNT 0.2 K/uL (1.0-2.8); MCH 28.8 PG (29.0-34.0); MCHC 31.3 G/DL (30.0-36.0); MCV 92.2 FL (86-99); MEAN PLAT.VOLUME 9.1 uM^3 (9.0-12.4); MONOCYTE (%) 1.2 % (3-12); MONOCYTE COUNT 0.2 K/uL (0-0.8); NEUTROPHIL (%) 96.8 % (45-76); NEUTROPHIL COUNT 13.2 K/uL (1.8-6.4); PLATELET COUNT 212 K/uL (156-360); RBC DIS.WIDTH-CV 16.7 % (11.8-14.6); RBC DIS.WIDTH-SD 54.8 % (39-53); RED BLOOD COUNT 3.47 M/uL (4.00-5.50); WHITE BLOOD COUNT 13.7 K/uL (4.1-10.2)
[2017-02-20 07:32] LABS: ALKALINE PHOSPHATASE 187 IU/L (3-129); ANION GAP 12 MEQ/L (2-14); CHLORIDE 90 MEQ/L (99-109); GFR ESTIMATE (CALCULATED) 17 mL/min/; POTASSIUM 5.5 MEQ/L (3.7-5.4); SAMPLE HEMOLYSIS CHECK 0; SAMPLE ICTERIC CHECK 0; SAMPLE LIPEMIA CHECK 0; SODIUM 130 MEQ/L (136-147); TOTAL BILIRUBIN 0.6 MG/DL (0.0-1.0); UREA NITROGEN (BUN) 43 mg/dL (9-23)
[2017-02-20 07:36] LABS: GLUCOSE 441 mg/dL (70-99)
[2017-02-20 12:16] LABS: POINT-OF-CARE METER ID UU14314084
[2017-02-20 12:16] LABS: POINT-OF-CARE METER ID UU14208750
[2017-02-20 12:16] LABS: POINT-OF-CARE METER ID UU14208750
[2017-02-20 12:16] LABS: POINT-OF-CARE METER ID UU14208750
[2017-02-20 18:00] LABS: POINT-OF-CARE METER ID UU14208750
[2017-02-20 18:00] LABS: POINT-OF-CARE METER ID UU14208750
[2017-02-20 18:10] LABS: POINT-OF-CARE METER ID UU14208750
[2017-02-20 21:20] LABS: POINT-OF-CARE METER ID UU14208750
[2017-02-21 00:34] LABS: POINT-OF-CARE METER ID UU14208750
[2017-02-21 03:40] VITALS: BP 126/60
[2017-02-21 03:58] LABS: POINT-OF-CARE METER ID UU14208750
[2017-02-21 05:59] LABS: POINT-OF-CARE METER ID UU14208750
[2017-02-21 08:52] LABS: VANCOMYCIN, TROUGH 15.8 MCG/ML (10-20)
[2017-02-21 09:39] LABS: EOSINOPHIL (%) 0 % (0-5); HEMATOCRIT 31.8 % (38.0-50.0); IMMATURE GRANULOCYTE (%) 0.6 % (0.0-0.7); IMMATURE GRANULOCYTE COUNT 0.1 K/uL; INSTRUMENT ABS NEUTROPHIL CT 16.4 K/uL; LYMPHOCYTE COUNT 0.4 K/uL (1.0-2.8); MCH 29.4 PG (29.0-34.0); MCHC 31.8 G/DL (30.0-36.0); MCV 92.7 FL (86-99); MEAN PLAT.VOLUME 9.5 uM^3 (9.0-12.4); MONOCYTE (%) 4.2 % (3-12); MONOCYTE COUNT 0.8 K/uL (0-0.8); NEUTROPHIL COUNT 16.4 K/uL (1.8-6.4); PLATELET COUNT 210 K/uL (156-360); RBC DIS.WIDTH-CV 16.6 % (11.8-14.6); RBC DIS.WIDTH-SD 55.5 % (39-53); RED BLOOD COUNT 3.43 M/uL (4.00-5.50); WHITE BLOOD COUNT 17.7 K/uL (4.1-10.2)
[2017-02-21 09:49] LABS: ANION GAP 14 MEQ/L (2-14); CHLORIDE 91 MEQ/L (99-109); GFR ESTIMATE (CALCULATED) 11 mL/min/; GLUCOSE 325 mg/dL (70-99); SODIUM 131 MEQ/L (136-147)
[2017-02-21 09:50] LABS: UREA NITROGEN (BUN) 74 mg/dL (9-23)
[2017-02-21 13:15] VITALS: BP 119/75
[2017-02-21 13:58] LABS: POINT-OF-CARE METER ID UU14162508
[2017-02-21 15:56] VITALS: BP 126/74
[2017-02-21 16:35] LABS: POINT-OF-CARE METER ID UU14162508
[2017-02-21 21:40] LABS: POINT-OF-CARE METER ID UU14208750
[2017-02-21 23:43] VITALS: BP 123/70
[2017-02-22 06:41] LABS: POINT-OF-CARE METER ID UU14208750
[2017-02-22 08:10] VITALS: BP 122/58
[2017-02-22 09:00] VITALS: BP 122/58
[2017-02-22 12:10] LABS: POINT-OF-CARE METER ID UU14162508
[2017-02-22 16:20] VITALS: BP 119/56
[2017-02-22 16:38] LABS: POINT-OF-CARE METER ID UU14162508
[2017-02-22 21:41] LABS: POINT-OF-CARE METER ID UU14208750
[2017-02-22 23:58] VITALS: BP 127/64
[2017-02-23 06:16] LABS: POINT-OF-CARE METER ID UU14162508
[2017-02-23 07:15] VITALS: BP 131/61
[2017-02-23 07:32] LABS: ANION GAP 14 MEQ/L (2-14); CHLORIDE 91 MEQ/L (99-109); GFR ESTIMATE (CALCULATED) 11 mL/min/; GLUCOSE 315 mg/dL (70-99); POTASSIUM 5.3 MEQ/L (3.7-5.4); SAMPLE HEMOLYSIS CHECK 0; SAMPLE ICTERIC CHECK 0; SAMPLE LIPEMIA CHECK 0; SODIUM 133 MEQ/L (136-147); UREA NITROGEN (BUN) 80 mg/dL (9-23); VANCOMYCIN, TROUGH 20.7 MCG/ML (10-20)
[2017-02-23 08:02] LABS: EOSINOPHIL (%) 0 % (0-5); HEMATOCRIT 32.2 % (38.0-50.0); IMMATURE GRANULOCYTE (%) 0.7 % (0.0-0.7); IMMATURE GRANULOCYTE COUNT 0.1 K/uL; INSTRUMENT ABS NEUTROPHIL CT 13.9 K/uL; LYMPHOCYTE COUNT 0.4 K/uL (1.0-2.8); MCHC 32.3 G/DL (30.0-36.0); MCV 92.8 FL (86-99); MEAN PLAT.VOLUME 9.9 uM^3 (9.0-12.4); MONOCYTE (%) 5.8 % (3-12); MONOCYTE COUNT 0.9 K/uL (0-0.8); NEUTROPHIL (%) 90.7 % (45-76); NEUTROPHIL COUNT 13.9 K/uL (1.8-6.4); PLATELET COUNT 149 K/uL (156-360); RBC DIS.WIDTH-CV 16.3 % (11.8-14.6); RBC DIS.WIDTH-SD 55.1 % (39-53); RED BLOOD COUNT 3.47 M/uL (4.00-5.50); WHITE BLOOD COUNT 15.3 K/uL (4.1-10.2)
[2017-02-23 13:39] VITALS: BP 114/59
[2017-02-23 13:39] LABS: POINT-OF-CARE METER ID UU14162508
[2017-02-23 17:12] LABS: POINT-OF-CARE METER ID UU14162508
[2017-02-23 19:16] VITALS: BP 112/55
[2017-02-23 22:28] LABS: POINT-OF-CARE METER ID UU14208750
[2017-02-23 23:44] VITALS: BP 126/58
[2017-02-24 03:36] VITALS: BP 115/56
[2017-02-24 09:09] VITALS: BP 120/74
[2017-02-24 09:51] LABS: POINT-OF-CARE METER ID UU14162508
[2017-02-24 11:48] LABS: POINT-OF-CARE METER ID UU14208750
[2017-02-24 15:28] VITALS: BP 128/74
[2017-02-24 16:54] LABS: POINT-OF-CARE METER ID UU14208750
[2017-02-24 22:04] LABS: POINT-OF-CARE METER ID UU14162508
[2017-02-24 23:43] VITALS: BP 124/61
[2017-02-25 08:00] VITALS: BP 124/58
[2017-02-25 08:40] LABS: POINT-OF-CARE METER ID UU14162508
[2017-02-25 08:56] LABS: POINT-OF-CARE METER ID UU14208750
[2017-02-25 11:30] LABS: POINT-OF-CARE METER ID UU14208750
[2017-02-25 16:00] VITALS: BP 133/74
[2017-02-25 16:04] LABS: POINT-OF-CARE METER ID UU14208750
[2017-02-25 22:19] LABS: POINT-OF-CARE METER ID UU14208750
[2017-02-25 23:39] VITALS: BP 163/70
[2017-02-26 06:18] LABS: POINT-OF-CARE METER ID UU14208750
[2017-02-26 07:35] VITALS: BP 146/69
[2017-02-26 09:10] LABS: EOSINOPHIL (%) 0 % (0-5); HEMATOCRIT 33.2 % (38.0-50.0); IMMATURE GRANULOCYTE (%) 0.6 % (0.0-0.7); IMMATURE GRANULOCYTE COUNT 0.1 K/uL; INSTRUMENT ABS NEUTROPHIL CT 15.7 K/uL; LYMPHOCYTE COUNT 0.5 K/uL (1.0-2.8); MCH 29.3 PG (29.0-34.0); MCHC 31.9 G/DL (30.0-36.0); MCV 91.7 FL (86-99); MEAN PLAT.VOLUME 10.1 uM^3 (9.0-12.4); NEUTROPHIL (%) 90.6 % (45-76); NEUTROPHIL COUNT 15.7 K/uL (1.8-6.4); PLATELET COUNT 122 K/uL (156-360); RBC DIS.WIDTH-CV 16.3 % (11.8-14.6); RBC DIS.WIDTH-SD 54.9 % (39-53); RED BLOOD COUNT 3.62 M/uL (4.00-5.50); WHITE BLOOD COUNT 17.3 K/uL (4.1-10.2)
[2017-02-26 09:25] LABS: ANION GAP 14 MEQ/L (2-14); CHLORIDE 92 MEQ/L (99-109); POTASSIUM 5.2 MEQ/L (3.7-5.4); SAMPLE HEMOLYSIS CHECK 0; SAMPLE ICTERIC CHECK 0; SAMPLE LIPEMIA CHECK 0; SODIUM 135 MEQ/L (136-147)
[2017-02-26 09:47] LABS: GFR ESTIMATE (CALCULATED) 9 mL/min/; GLUCOSE 159 mg/dL (70-99); UREA NITROGEN (BUN) 113 mg/dL (9-23)
[2017-02-26 13:56] LABS: POINT-OF-CARE METER ID UU14208750
[2017-02-26] MEDS ORDERED: FUROSEMIDE80 MG PO (14:23)
[2017-02-26] MEDS ORDERED: LEVEMIR100 UNIT/2 SC (14:24)
[2017-02-26] MEDS ORDERED: NEPHRO-VITE,1 TABLET PO (14:25)
[2017-02-26 15:50] VITALS: BP 145/67
[2017-02-26 16:48] LABS: POINT-OF-CARE METER ID UU14208750
[2017-03-01] MEDS ORDERED: VANCOMYCIN HCL1 GM IV (10:34)
[2017-03-01] MEDS ORDERED: MAXIPIME1 GM IV (10:35)
== END 2017-02-26 17:44 | DRG 189 ==
LOC: EME → EDBD 11:10 → EME 11:10 → EDOF 13:21 → 2EAST 13:21 → ENRESERV 13:24 → CANRESERV 13:24 → EDOF 13:49 → ENRESERV 13:51 → CANRESERV 13:51 → EDOF 16:14 → ENRESERV 16:23 → 2EAST 20:05
PROVIDERS: Emergency Medicine; Internal Medicine; Internal Medicine Nephrology
DX: J96.21 Acute and chronic respiratory failure with hypoxia (principal); E78.5 Hyperlipidemia, unspecified; J18.9 Pneumonia, unspecified organism; I48.2 Chronic atrial fibrillation; J44.0 Chronic obstructive pulmonary disease with (acute) lower respiratory infection; N18.6 End stage renal disease; I50.9 Heart failure, unspecified; I96 Gangrene, not elsewhere classified; F32.9 Major depressive disorder, single episode, unspecified; E11.52 Type 2 diabetes mellitus with diabetic peripheral angiopathy with gangrene; E66.01 Morbid (severe) obesity due to excess calories; D64.9 Anemia, unspecified; H40.9 Unspecified glaucoma; G47.33 Obstructive sleep apnea (adult) (pediatric); N40.0 Benign prostatic hyperplasia without lower urinary tract symptoms; K21.9 Gastro-esophageal reflux disease without esophagitis; E11.65 Type 2 diabetes mellitus with hyperglycemia; K29.00 Acute gastritis without bleeding; E87.5 Hyperkalemia; M10.9 Gout, unspecified; J44.1 Chronic obstructive pulmonary disease with (acute) exacerbation; M19.90 Unspecified osteoarthritis, unspecified site; M86.8X7 Other osteomyelitis, ankle and foot; M20.61 Acquired deformities of toe(s), unspecified, right foot; Y95 Nosocomial condition; Z99.81 Dependence on supplemental oxygen; Z95.5 Presence of coronary angioplasty implant and graft; Z99.2 Dependence on renal dialysis; Z87.891 Personal history of nicotine dependence; Z91.040 Latex allergy status; Z87.440 Personal history of urinary (tract) infections; Z79.899 Other long term (current) drug therapy; Z79.4 Long term (current) use of insulin; Z83.3 Family history of diabetes mellitus; Z68.33 Body mass index [BMI] 33.0-33.9, adult
CPT/HCPCS: 71010; 71020; 71250; 80048; 80053; 80069; 80202; 81003; 82948; 83605; 84484; 85025; 85027; 87040; 87070; 87086; 87106; 87205; 87641; 93005; 94640; 94640 76; 94667; 94668; 94760; 94799; 97530 GP; 99202; 99281; 99285; J0692; J1644; J1815; J2543; J2920; J2930; J3370; J7050; J7512

== ENCOUNTER 2017-04-04 09:29 | Inpatient (IN) | payer OTHER ==
[2017-04-04] VITALS (21 sets, daily range): BP systolic 77–114; BP diastolic 36–65
[~2017-04-04] VITALS: Ht 177.8 cm; Wt 103.4 kg
[~2017-04-04 09:29] MED LIST changes: +BETADINE1 EACH TP; +CALMOSEPTINE O3.5 GM TP; +FORTAZ IV; +FUROSEMIDE80 MG PO; +MAXIPIME1 GM IV; +PREDNISONE10 MG PO; +PREDNISONE5 MG PO; +REGLAN5 MG PO
[2017-04-04 09:46] LABS: BASE EXCESS 3.6 mEq/L (-3 to +3); BICARBONATE 29.1 mEq/L (22-26); METHEMOGLOBIN 1.6 % (0-1.5); PCO2 47 mm Hg (35-45); PO2 274 mm Hg (80-100)
[2017-04-04 09:47] LABS: COMMENTS - BLOOD GASES C+; CONTINUOUS POS AIRWAY PRESSURE 5 cm H2O; DEVICE MASK VENTILATOR; FI02 100 %; MODE SPONTANOUS; PRES. SUPPORT 10 CM/H2O; SITE RB; TOTAL RESP RATE 23 resp/min
[2017-04-04 09:58] LABS: BASOPHIL COUNT 0.1 K/uL (0-0.1); EOSINOPHIL (%) 0.4 % (0-5); EOSINOPHIL COUNT 0.1 K/uL (0-0.3); IMMATURE GRANULOCYTE (%) 1.3 % (0.0-0.7); IMMATURE GRANULOCYTE COUNT 0.2 K/uL; INSTRUMENT ABS NEUTROPHIL CT 17.2 K/uL; LYMPHOCYTE COUNT 0.5 K/uL (1.0-2.8); MCH 30.4 PG (29.0-34.0); MCHC 30.3 G/DL (30.0-36.0); MCV 100.3 FL (86-99); MONOCYTE (%) 5.9 % (3-12); MONOCYTE COUNT 1.1 K/uL (0-0.8); NEUTROPHIL (%) 89.4 % (45-76); NEUTROPHIL COUNT 17.2 K/uL (1.8-6.4); NRBC (%) 0.1 /100 WBC (0-0); PLATELET COUNT 247 K/uL (156-360); RBC DIS.WIDTH-CV 20.4 % (11.8-14.6); RED BLOOD COUNT 3.69 M/uL (4.00-5.50); WHITE BLOOD COUNT 19.2 K/uL (4.1-10.2)
[2017-04-04 10:02] LABS: INTER. NORMALIZED RATIO 1.2; PROTHROMBIN TIME 13.5 SEC (10.2-12.9)
[2017-04-04 10:05] LABS: PTT 32.7 SEC (25-37)
[2017-04-04 10:06] LABS: CHLORIDE 104 mEq/L (99-109); POTASSIUM 4.6 mEq/L (3.7-5.4); SODIUM 140 mEq/L (136-147)
[2017-04-04 10:08] LABS: GLUCOSE 80 mg/dL (70-99)
[2017-04-04 10:09] LABS: ANION GAP 9 MEQ/L (2-14)
[2017-04-04 10:10] LABS: TOTAL BILIRUBIN 0.6 mg/dL (0.0-1.0)
[2017-04-04 10:11] LABS: ALKALINE PHOSPHATASE 219 IU/L (3-129)
[2017-04-04 10:12] LABS: GFR ESTIMATE (CALCULATED) 20 mL/min/
[2017-04-04 10:13] LABS: UREA NITROGEN (BUN) 21 mg/dL (9-23)
[2017-04-04 10:17] LABS: TROP-I INTERPRETATION NEGATIVE; TROPONIN-I 0.05 ng/mL (0.0-0.30)
[2017-04-04] MEDS ORDERED: ROXICODONE5 MG PO ×2 (11:51→11:52)
[2017-04-04] MEDS ORDERED: CALCIUM ACETAT667 MG PO (11:54)
[2017-04-04] MEDS ORDERED: LEVEMIR100 UNIT/2 SC ×2 (11:55→11:56)
[2017-04-04] MEDS ORDERED: ONDANSETRON HCL4 MG PO (11:57)
[2017-04-04] MEDS ORDERED: BISAC-EVAC10 MG PR (11:58)
[2017-04-04] MEDS ORDERED: ASCORBIC ACID250 MG PO (11:58)
[2017-04-04] MEDS ORDERED: FULL SPECTRUM0.8 MG PO (12:06)
[2017-04-04] MEDS ORDERED: ADVAIR 250/501 DISK IH (12:08)
[2017-04-04] MEDS ORDERED: DUONEB 2.5-0.5 M3 ML AEROSOL (12:08)
[2017-04-04 16:52] LABS: BASE EXCESS 2.5 mEq/L (-3 to +3); BICARBONATE 30.3 mEq/L (22-26); CARBOXY HGB 2.2 % (0-5); COMMENTS - BLOOD GASES C+; DEVICE HFNC; METHEMOGLOBIN 2.2 % (0-1.5); O2 FLOW 7 L/MIN; PCO2 63 mm Hg (35-45); PO2 79 mm Hg (80-100); SITE RB; pH 7.29 (7.35-7.45)
[2017-04-04 19:08] LABS: METH RESISTANT S AUREUS PCR POSITIVE (NEGATIVE)
[2017-04-04 19:15] LABS: PROBE CHECK PASS
[2017-04-04 21:46] LABS: POINT-OF-CARE METER ID UU14174217
[2017-04-04 22:16] LABS: POINT-OF-CARE METER ID UU14174217
[2017-04-05] VITALS (25 sets, daily range): BP systolic 82–111; BP diastolic 39–60
[2017-04-05 07:01] LABS: POINT-OF-CARE METER ID UU14208751
[2017-04-05 12:36] LABS: MEAN PLAT.VOLUME 9.4 uM^3 (9.0-12.4); PLATELET COUNT 257 K/uL (156-360)
[2017-04-05 12:46] LABS: POINT-OF-CARE METER ID UU14208751
[2017-04-05 12:57] LABS: ANION GAP 14 MEQ/L (2-14); CHLORIDE 105 MEQ/L (99-109); GFR ESTIMATE (CALCULATED) 15 mL/min/; GLUCOSE 264 mg/dL (70-99); MAGNESIUM 1.6 mg/dl (1.3-2.7); POTASSIUM 4.5 MEQ/L (3.7-5.4); SAMPLE HEMOLYSIS CHECK 0; SAMPLE ICTERIC CHECK 0; SAMPLE LIPEMIA CHECK 0; SODIUM 139 MEQ/L (136-147); UREA NITROGEN (BUN) 39 mg/dL (9-23)
[2017-04-05 13:00] LABS: HEMATOCRIT 35.2 % (38.0-50.0); MCH 30.8 PG (29.0-34.0); MCHC 29.5 G/DL (30.0-36.0); MCV 104.1 FL (86-99); NRBC (%) 0.2 /100 WBC (0-0); RBC DIS.WIDTH-CV 20.4 % (11.8-14.6); RED BLOOD COUNT 3.38 M/uL (4.00-5.50)
[2017-04-05 13:10] LABS: BASOPHIL COUNT 0.2 K/uL (0-0.1); EOSINOPHIL (%) 0.1 % (0-5); EOSINOPHIL COUNT 0.1 K/uL (0-0.3); IMMATURE GRANULOCYTE (%) 4.4 % (0.0-0.7); IMMATURE GRANULOCYTE COUNT 1.5 K/uL; INSTRUMENT ABS NEUTROPHIL CT 29.7 K/uL; LYMPHOCYTE COUNT 0.7 K/uL (1.0-2.8); MONOCYTE (%) 4.7 % (3-12); MONOCYTE COUNT 1.6 K/uL (0-0.8); NEUTROPHIL (%) 88.4 % (45-76); NEUTROPHIL COUNT 29.7 K/uL (1.8-6.4); WHITE BLOOD COUNT 33.6 K/uL (4.1-10.2)
[2017-04-05 17:37] LABS: POINT-OF-CARE METER ID UU14208751
[2017-04-06] VITALS (13 sets, daily range): BP systolic 61–111; BP diastolic 36–63
[2017-04-06 01:21] LABS: POINT-OF-CARE METER ID UU14208751
[2017-04-06 04:48] LABS: HEMATOCRIT 34.1 % (38.0-50.0); MCH 30.4 PG (29.0-34.0); MCHC 29.9 G/DL (30.0-36.0); MCV 101.5 FL (86-99); MEAN PLAT.VOLUME 9.6 uM^3 (9.0-12.4); NRBC (%) 0.4 /100 WBC (0-0); PLATELET COUNT 255 K/uL (156-360); RBC DIS.WIDTH-CV 20.1 % (11.8-14.6); RBC DIS.WIDTH-SD 75.3 % (39-53); RED BLOOD COUNT 3.36 M/uL (4.00-5.50); WHITE BLOOD COUNT 28.5 K/uL (4.1-10.2)
[2017-04-06 04:59] LABS: CHLORIDE 110 mEq/L (99-109); POTASSIUM 4.1 mEq/L (3.7-5.4); SODIUM 138 mEq/L (136-147)
[2017-04-06 05:01] LABS: GLUCOSE 232 mg/dL (70-99)
[2017-04-06 05:03] LABS: ANION GAP 9 MEQ/L (2-14)
[2017-04-06 05:05] LABS: GFR ESTIMATE (CALCULATED) 14 mL/min/
[2017-04-06 05:06] LABS: UREA NITROGEN (BUN) 44 mg/dL (9-23)
[2017-04-06 07:11] LABS: ABS NEUTROPHIL COUNT 25.7; ANISOCYTOSIS 1+; EOSINOPHIL ABS CT 0.3; INSTRUMENT ABS NEUTROPHIL CT 24.7 K/uL; LYMPHOCYTES 3.5 % (15.0-45.0); MACROCYTES 1+; OVALOCYTES 1+; PLAT.SUFFICIENCY ADEQUATE; POIKILOCYTOSIS 1+
[2017-04-06 08:05] LABS: POINT-OF-CARE METER ID UU13113748
[2017-04-08 21:52] LABS: POINT-OF-CARE METER ID UU14208751
== END 2017-04-06 22:54 | DRG 871 ==
LOC: EME 09:29 → EDOF 11:25 → 5EAST 11:25 → 4WEST 11:25 → ENRESERV 11:35 → EDOF 11:41 → CANRESERV 11:56 → ENRESERV 11:56 → EDOF 14:00 → ENRESERV 14:16 → 3EAST 16:09 → ENRESERV 17:25 → 4WEST 17:26 → ENRESERV 04-06 11:28 → 5EAST 04-06 13:26
PROVIDERS: Emergency Medicine; Internal Medicine; Surgery
PROC: 5A09358 Assistance with Respiratory Ventilation, Less than 24 Consecutive Hours, Intermittent Positive Airway Pressure (ICD-10-PCS; principal; 2017-04-04)
DX: A41.9 Sepsis, unspecified organism (principal); J18.9 Pneumonia, unspecified organism; J96.21 Acute and chronic respiratory failure with hypoxia; R65.21 Severe sepsis with septic shock; J44.0 Chronic obstructive pulmonary disease with (acute) lower respiratory infection; E87.2 Acidosis; I13.2 Hypertensive heart and chronic kidney disease with heart failure and with stage 5 chronic kidney disease, or end stage renal disease; N18.6 End stage renal disease; I50.9 Heart failure, unspecified; I48.2 Chronic atrial fibrillation; I25.10 Atherosclerotic heart disease of native coronary artery without angina pectoris; E11.22 Type 2 diabetes mellitus with diabetic chronic kidney disease; E11.40 Type 2 diabetes mellitus with diabetic neuropathy, unspecified; E11.21 Type 2 diabetes mellitus with diabetic nephropathy; G62.9 Polyneuropathy, unspecified; E11.51 Type 2 diabetes mellitus with diabetic peripheral angiopathy without gangrene; E11.69 Type 2 diabetes mellitus with other specified complication; I96 Gangrene, not elsewhere classified; L03.90 Cellulitis, unspecified; D63.1 Anemia in chronic kidney disease; E78.5 Hyperlipidemia, unspecified; G47.33 Obstructive sleep apnea (adult) (pediatric); K21.9 Gastro-esophageal reflux disease without esophagitis; M86.9 Osteomyelitis, unspecified; H40.9 Unspecified glaucoma; N30.20 Other chronic cystitis without hematuria; I87.2 Venous insufficiency (chronic) (peripheral); M19.90 Unspecified osteoarthritis, unspecified site; Y95 Nosocomial condition; Z51.5 Encounter for palliative care; Z66 Do not resuscitate; Z79.4 Long term (current) use of insulin; Z87.01 Personal history of pneumonia (recurrent); Z87.440 Personal history of urinary (tract) infections; Z87.891 Personal history of nicotine dependence; Z91.040 Latex allergy status; I25.2 Old myocardial infarction; Z95.5 Presence of coronary angioplasty implant and graft; Z99.2 Dependence on renal dialysis; Z89.431 Acquired absence of right foot
CPT/HCPCS: 36600; 71010; 80048; 80053; 80202; 81003; 82803; 82948; 83605; 83735; 83880; 84100; 84484; 85025; 85610; 85730; 87040; 87081; 87641; 93005; 94002; 94003; 94640 76; 94760; 94799; 99202; 99281; 99285; J1644; J1815; J1885; J1940; J2060; J2543; J3370; J7030; J7040; J7042; J7050